=== PATIENT | male | born 1945 | race Caucasian/White ===

== ENCOUNTER → 2016-12-20 | Outpatient (CLI) | payer MEDICARE ==
--- NOTE | 2016-12-20 14:30 | Diagnostic Imaging Report ---
PROCEDURE: CT abdomen and pelvis without contrast. TECHNIQUE: Multiple contiguous axial images were obtained through the abdomen and pelvis without the use of intravenous contrast. INDICATION: Hematuria. FINDINGS: The lung bases appear clear. The heart size is not enlarged. The liver demonstrates fluid-attenuation lesions up to 3 cm in size. These are not well characterized on this unenhanced exam; however, they most likely represent hepatic cysts. The spleen is not enlarged. The adrenal glands and the pancreas appear unremarkable. The kidneys demonstrate no hydronephrosis. There is a 7.5 cm fluid-attenuation lesion in the upper pole of the right kidney suggestive of a simple cyst. A cystic lesion measuring 2.6 cm in the mid left kidney is also seen. There is no hydronephrosis. There are no urinary tract stones identified. The prostate is enlarged measuring 6.4 cm in transverse dimension. There are multiple colonic diverticula. No diverticulitis. The appendix appears normal. The abdominal aorta is normal in caliber. No para-aortic significantly enlarged lymph nodes. The osseous structures appear grossly unremarkable. IMPRESSION: 1. No urinary tract stones and no hydronephrosis. 2. Bilateral fluid-attenuation lesions in the kidneys and in the liver are suggestive of cysts. 3. Diverticulosis; no evidence of diverticulitis. 4. Enlarged prostate. Dictated by: Dictated on workstation # [id number]
== END ==
LOC: RAD 13:29
PROVIDERS: ATTEND Urology
DX: K76.9 Liver disease, unspecified (principal); N28.9 Disorder of kidney and ureter, unspecified; K57.30 Diverticulosis of large intestine without perforation or abscess without bleeding; N40.0 Benign prostatic hyperplasia without lower urinary tract symptoms
CPT/HCPCS: 74176